=== PATIENT | female | born 1960 | race Caucasian/White ===

== ENCOUNTER 2020-01-18 04:32 | Inpatient (IN) | payer OTHER ==
[2020-01-16 17:28] VITALS: BMI 33.6
--- NOTE | 2020-01-18 08:02 | HP ---
History & Physical Update - History History: No Change - Physical Physical: No Change - Assessment Assessment: No Change - Plan Plan: No Change (H&P reviwed , no changes , for TVH, cystorectocele repair)
[2020-01-18] MEDS ORDERED: metFORMIN HCL 500 MG TABLET (FP) PO SCH (10:00)
[2020-01-18] MEDS ORDERED: PNEUMOC 13-VAL CONJ-DIP CRM/PF 0.5 ML DISP.SYRIN IM ONE (12:44)
[2020-01-18] MEDS ORDERED: VASOPRESSIN 20 UNITS/ML VIAL IV ONE (13:05)
[2020-01-18] MEDS ORDERED: metroNIDAZOLE 0.75% VAGINAL GEL 70 GM TUBE ONE (13:05)
[2020-01-18] MEDS ORDERED: LIDOCAINE HCL/PF 2% SDV 5ML VIAL ONE (13:54)
[2020-01-18] MEDS ORDERED: ceFAZolin SODIUM 1 GM VIAL ONE (13:54)
[2020-01-18] MEDS ORDERED: ROCURONIUM BROMIDE 50 MG/5 ML SYRINGE ONE (13:54)
[2020-01-18] MEDS ORDERED: fentaNYL CITRATE 250 MCG/5 ML VIAL ONE (13:55)
[2020-01-18] MEDS ORDERED: PROPOFOL 20 ML ONE ×2 (13:55→16:54)
[2020-01-18] MEDS ORDERED: MIDAZOLAM HCL 2 MG/2 ML SINGLE DOSE VIAL ONE (13:55)
[2020-01-18] MEDS ORDERED: DESFLURANE GAS 240 ML BOTTLE IH ONE (13:56)
[2020-01-18] MEDS ORDERED: ceFAZolin SODIUM 1 GM VIAL IVPB ONE (14:40)
[2020-01-18] MEDS ORDERED: GENTAMICIN SO4 80 MG/2 ML VIAL ONE (17:10)
[2020-01-18] MEDS ORDERED: GENTAMICIN SO4 80 MG/2 ML VIAL IVPB ONE (17:10)
[2020-01-18] MEDS ORDERED: NEOSTIGMINE METHYLSULFATE 0.5 MG/ML - 10 ML MDV ONE (17:18)
[2020-01-18] MEDS ORDERED: metroNIDAZOLE 0.75% VAGINAL GEL 70 GM TUBE VG ONE (17:25)
[2020-01-18] MEDS ORDERED: HYDROmorphone *PCA* 10MG/50ML DISP.SYRIN ONE (17:32)
[2020-01-18] MEDS ORDERED: ONDANSETRON 4 MG/2 ML VIAL IVPUSH PRN ×3 (17:39→18:12)
[2020-01-18] MEDS: HYDROmorphone *PCA* 10MG/50ML DISP.SYRIN PCA SCH (17:45)
--- NOTE | 2020-01-18 17:57 | OP ---
Operative Note - Note: Operative Date: 01/18/20 Pre-Operative Diagnosis: complete uterovagnial prolapse, cystocele Operation: anterior and posteior colporrhapy with perineoplasty, vaginal hystercectomy Surgeon: Paul Moss Material Flow Analyst: Mag Summers Anesthesiologist/DRY PLASTERER HELPER: Hai Russell Anesthesia: General Estimated Blood Loss (mls): 200 Drains, Volume Out (mls): 50 (rooney) Fluid Volume Replaced (mls): 1,700 Operative Report Dictated: Yes
[2020-01-18] MEDS ORDERED: SODIUM CHLORIDE 1,000 ML IV SCH (18:00)
[2020-01-18] MEDS ORDERED: IBUPROFEN 600 MG TABLET (FP) PO PRN (18:12)
[2020-01-18] MEDS ORDERED: IBUPROFEN 800 MG/8 ML IJ IVPB PRN (18:12)
--- NOTE | 2020-01-18 19:31 | OP ---
Operative Note - Note: Operative Date: 01/18/20 Pre-Operative Diagnosis: total uterovaginal prolapse , procedentia Operation: TVH, cystorectocele, pernioplasty Findings: both tubes and ovary normal Surgeon: Paul Moss Travograph Operator: Mag Summers Anesthesia: General Specimens Removed: uterus, ant. post vaginal mucosa, post. perinial skin Estimated Blood Loss (mls): 200 Drains & Tubes with Location: rooney, vaginal packing Drains, Volume Out (mls): 50 Blood Volume Replaced (mls): 0 Operative Report Dictated: Yes
--- NOTE | 2020-01-18 20:08 | OP ---
DATE OF OPERATION: 01/18/2020 PREOPERATIVE DIAGNOSIS: Complete uterovaginal prolapse, cystocele, rectocele. POSTOPERATIVE DIAGNOSIS: Complete uterovaginal prolapse, cystocele, rectocele. PROCEDURE: Vaginal hysterectomy, cystocele/rectocele repair, and perineoplasty. SURGEON: Paul Moss MD. METAL MACHINE SETTER: AUDREY Harrington. ESTIMATED BLOOD LOSS: 200 mL. URINE OUTPUT: 50 mL. DESCRIPTION OF PROCEDURE: Patient was taken to operating room, where under adequate general anesthesia in dorsal lithotomy position an examination under anesthesia revealed total procidentia, uterus and bladder was out of vagina and hanging, and there was a large rectocele and cystocele, and uterus normal size. No adnexal masses were palpable. Then with the weighted speculum in the vagina, anterior lip of the cervix was grasped with 2 single-loop tenaculum and then anterior and posterior vaginal mucosa was infiltrated with diluted solution of the vasopressin. Then circumferential incision was made around the cervix. Posterior vaginal mucosa was grasped with a pickup and then with Metzenbaum scissors. Posterior vaginal mucosa was dissected from the cervix with sharp and blunt dissection, and then posterior cul-de-sac was reached and distended, peritoneum was grasped with Ximena clamp and entered with Metzenbaum scissors, then peritoneum was sutured to the posterior vaginal cuff and was held. Then, anterior vaginal mucosa was infiltrated with vasopressin and dissected with Metzenbaum scissors, sharp and blunt dissection, and bladder was lifted from the cervix. Then uterosacral ligament was identified. It was clamped with Sabra clamps bilaterally but and the clamp replaced with 0 Vicryl suture bilaterally. Then paracervical area clamped with Sabra clamps and cut, and the clamps replaced with 0 Vicryl suture bilaterally. Then uterine artery was identified bilaterally. Bladder was lifted, and then uterine artery was clamped with Sabra clamp, cut, and the clamp replaced with 0 Vicryl suture bilaterally. At this time, anterior peritoneum was grasped with pickup and entered with Metzenbaum scissors, and then bladder was lifted. After pedicles were reached, and then clamped with Sabra clamp and cut, and the both pedicle first with 0 Vicryl tie and then with 0 Vicryl suture. Both ovaries were normal, and then pelvic cavity was irrigated, all the pedicles were dry. Then peritoneum was closed with pursestring suture of the 0 Vicryl, and this time I was notified there was 1 missing sponge. X-ray was taken, and sponge was seen in the cul-de-sac. Peritoneum was opened through the vagina, and the sponge was removed, and then the peritoneum was re-sutured. Then vaginal cuff was closed with interrupted suture of 0 Vicryl. Then the cystocele repair started by infiltrating the anterior vaginal mucosa and then anterior vaginal mucosa was cut in the midline and then undermined with Metzenbaum scissors, and the bladder was from the mucosa. Then cystocele was repaired with pursestring of the 2-0 Vicryl, and then several 3-0 Vicryl mattress sutures were placed over the bladder for reinforcement, then excised, and mucosa was removed, then vaginal mucosa was brought together with interrupted suture of 0 Vicryl. At this time the Arango was inserted, clear urine was noted. Then posterior repair started by infiltrating posterior vaginal mucosa with vasopressin, then vaginal mucosa was cut in the midline vertically, and then the lip of the rectocele and rectum was from the vaginal mucosa, and then rectocele was repaired with several sutures of the mattress suture of 2-0 Vicryl, and then it greatly reduced. Then excess vaginal mucosa, posterior vaginal mucosa was cut, and then posterior vaginal mucosa repaired with continuous suture of 2-0 Vicryl, and then perineoplasty started by cutting the excess perineal skin. Then vaginal mucosa was removed around the muscle area, and then with interrupted sutures of 2-0 Vicryl, muscles were brought together, and then rest of the procedure in episiotomy-like fashion, and the posterior perineum was repaired like episiotomy-like fashion. Then vagina was packed with iodoform and cream, and then patient tolerated procedure well, left the OR in good condition. Omar [id number]
[2020-01-18] MEDS: ACETAMINOPHEN 1000 MG/100 ML VIAL (NON FORMULARY) IVPB SCH (21:15)
[2020-01-18] MEDS: GABAPENTIN 300 MG CAPSULE PO SCH (21:16)
[2020-01-18] MEDS: ATORVASTATIN CA 10 MG TABLET (FP) PO SCH (21:16)
[2020-01-18] MEDS: LACTATED RINGERS SOLUTION 1,000 ML IV SCH (21:17)
[2020-01-18] MEDS: ELECTROLYTE-148 SOLN 1,000 ML IV SCH (21:17)
[2020-01-18] MEDS: INSULIN SLIDING SCALE (NOVOLOG) 1 VIAL SQ SCH (21:30)
[2020-01-18] MEDS ORDERED: CEFAZOLIN 1 GM/D5W 1 GM/50 ML BAG IVPB SCH (23:00)
[2020-01-18] MEDS: CEFAZOLIN 2 GM/D5W 2 GM/50 ML ML IVPB SCH (23:50)
[2020-01-19] MEDS: ACETAMINOPHEN 1000 MG/100 ML VIAL (NON FORMULARY) IVPB SCH ×2 (04:20→10:15)
--- NOTE | 2020-01-19 05:52 | SURG ---
Surgery Inspector Packer Note Inspector Packer: Mag Summers PA-C Date of Service: 01/19/20 Diagnosis: total uterovaginal prolapse , procedentia Procedure: TVH, cystorectocele, pernioplasty I was present for the entirety of the operative procedure. For further detail, please refer to operative report. Visit type - Case Type Case Type: Scheduled - Emergency Emergency Visit: No - New patient This patient is new to me today: Yes Date on this admission: 01/18/20
[2020-01-19] MEDS: glipiZIDE 5 MG TABLET (FP) PO SCH (06:01)
[2020-01-19] MEDS: CEFAZOLIN 2 GM/D5W 2 GM/50 ML ML IVPB SCH ×2 (06:01→15:31)
[2020-01-19] MEDS: INSULIN SLIDING SCALE (NOVOLOG) 1 VIAL SQ SCH ×4 (06:08→21:38)
[2020-01-19 08:15] LABS: HEMOGLOBIN 10.2 GM/dL (10.7-15.3); MCH 29.3 pg (25.7-33.7); MEAN CELL VOLUME 88.8 fl (80-96); MEAN PLT VOLUME 9.3 fl (7.5-11.1); PLATELET COUNT 235 K/MM3 (134-434); RBC 3.49 M/mm3 (3.60-5.2); RDW 13.2 % (11.6-15.6); WHITE BLOOD COUNT 11.3 K/mm3 (4.0-10.0)
[2020-01-19 08:16] LABS: BASO % 0.3 % (0-2.0); HEMATOCRIT 31.1 % (32.4-45.2); HEMOGLOBIN 10.2 GM/dL (10.7-15.3); LYMPH % 13.4 % (8-40); MCH 29.3 pg (25.7-33.7); MCHC 32.8 g/dl (32.0-36.0); MEAN CELL VOLUME 89.4 fl (80-96); MEAN PLT VOLUME 9.6 fl (7.5-11.1); NEUT % 81.3 % (42.8-82.8); PLATELET COUNT 225 K/MM3 (134-434); RBC 3.48 M/mm3 (3.60-5.2); RDW 13.1 % (11.6-15.6); WHITE BLOOD COUNT 11.9 K/mm3 (4.0-10.0)
[2020-01-19 08:36] LABS: BLOOD UREA NITROGEN 14.9 mg/dL (7-18); CALCIUM 8.3 mg/dL (8.5-10.1); CREATININE 0.6 mg/dL (0.55-1.3); POTASSIUM 4.4 mmol/L (3.5-5.1)
[2020-01-19] MEDS: GABAPENTIN 300 MG CAPSULE PO SCH ×2 (10:14→21:37)
[2020-01-19] MEDS: metFORMIN HCL 500 MG TABLET (FP) PO SCH ×2 (10:14→17:34)
[2020-01-19] MEDS: ENOXAPARIN NA (PORCINE) 40 MG/0.4 ML DISP.SYRIN SQ SCH (10:21)
--- NOTE | 2020-01-19 14:22 | PN ---
Progress Note (short form) - Note Progress Note: Anesthesia post Op/pain Pt seen and examined S:Alert and awake mild discomfort at the incision site. COMPOSING ROOM MACHINIST stopped. O: Vital Signs Temperature 98.4 F 01/19/20 05:33 Pulse Rate 66 01/19/20 05:33 Respiratory Rate 18 01/19/20 05:33 Blood Pressure 104/67 01/19/20 05:33 O2 Sat by Pulse Oximetry (%) 98 01/19/20 05:33 CBC, BMP 01/19/20 06:37 01/19/20 06:37 A/P: s/p vaginal hysterectomy Doing well post op. Po pain meds as needed Continue current care Christopher Corrigan MD
[2020-01-19] MEDS: oxyCODONE HCL 5 MG TABLET PO PRN ×2 (15:29→20:22)
[2020-01-19] MEDS ORDERED: PNEUMOCOCCAL 23 VACCINE 0.5 ML VIAL IM ONE (18:00)
[2020-01-19] MEDS: HYDROmorphone *PCA* 10MG/50ML DISP.SYRIN PCA SCH (19:19)
[2020-01-19] MEDS: LACTATED RINGERS SOLUTION 1,000 ML IV SCH (19:19)
[2020-01-19] MEDS: ELECTROLYTE-148 SOLN 1,000 ML IV SCH ×2 (19:44→22:49)
[2020-01-19] MEDS: ATORVASTATIN CA 10 MG TABLET (FP) PO SCH (21:37)
[2020-01-19] MEDS ORDERED: IBUPROFEN 600 MG TABLET (FP) PO PRN (22:03)
[2020-01-19] MEDS: ACETAMINOPHEN 1000 MG/100 ML VIAL (NON FORMULARY) IVPB PRN (22:19)
[2020-01-20] MEDS: oxyCODONE HCL 5 MG TABLET PO PRN (05:13)
[2020-01-20] MEDS: glipiZIDE 5 MG TABLET (FP) PO SCH (06:15)
[2020-01-20] MEDS: metFORMIN HCL 500 MG TABLET (FP) PO SCH (06:15)
[2020-01-20] MEDS: INSULIN SLIDING SCALE (NOVOLOG) 1 VIAL SQ SCH ×2 (06:19→11:58)
[2020-01-20] MEDS: ACETAMINOPHEN 1000 MG/100 ML VIAL (NON FORMULARY) IVPB PRN (08:00)
--- NOTE | 2020-01-20 08:44 | PN ---
Progress Note (short form) - Note Progress Note: 01/19/20 2pm s/p TVH ,vaginal packing and rooney was removed in am , has been able to urinate freely, has mild suprapubic discomfort, no active vaginal bleeding or discharge afebrile , VSS abdomen soft , no distension, no cva, BS present vagina no bleeding , no discharge no calf tenderness or swelling plan ambulate iv antibiotics post op monitor urination and VS patient was made aware of retention sponge and removal . plan for d/c home if afebrile n view of DM, and procedentia with inflamed vaginal tissue preop will cont antibiotic po on d/c home
[2020-01-20] MEDS ORDERED: BISACODYL 10 MG SUPP.RECT PR PRN (08:56)
[2020-01-20] MEDS ORDERED: DOCUSATE SODIUM 100 MG CAPSULE (FP) PO PRN (08:56)
[2020-01-20] MEDS ORDERED: BISACODYL 10 MG SUPP.RECT PR SCH (08:57)
--- NOTE | 2020-01-20 09:03 | PN ---
Progress Note (SOAP) - Subjective History of Present Illness: Patient reports pain s/p oxycodone, on tylenol IV ambulating, voiding no flatus no bleeding no chest pain, shortness of breath - Current Medications Current Medications: Active Medications Acetaminophen (Ofirmev Injection -) 1,000 mg IVPB Q6H PRN PRN Reason: PAIN LEVEL 6-10 Stop: 01/20/20 22:09 Last Admin: 01/20/20 08:00 Dose: 1,000 mg Documented by: Atorvastatin Calcium (Lipitor -) 10 mg PO HS [facility] Last Admin: 01/19/20 21:37 Dose: 10 mg Documented by: Bisacodyl (Dulcolax Suppository -) 10 mg UT DAILY PRN PRN Reason: CONSTIPATION Bisacodyl (Dulcolax Suppository -) 10 mg UT ONCE [facility] Docusate Sodium (Colace -) 100 mg PO BID PRN PRN Reason: CONSTIPATION Enoxaparin Sodium (Lovenox -) 40 mg SQ DAILY [facility] Last Admin: 01/19/20 10:21 Dose: 40 mg Documented by: Gabapentin (Neurontin -) 300 mg PO BID [facility] Last Admin: 01/19/20 21:37 Dose: 300 mg Documented by: Glipizide (Glucotrol -) 5 mg PO ACBK [facility] Last Admin: 01/20/20 06:15 Dose: 5 mg Documented by: Lactated Ringer's (Lactated Ringers Solution) 1,000 mls @ 125 mls/hr IV ASDIR [facility] Last Admin: 01/19/20 19:19 Dose: Not Given Documented by: Sodium Chloride (Normal Saline -) 1,000 mls @ 100 mls/hr IV ASDIR [facility] Last Admin: 01/18/20 18:00 Dose: 150 mls Documented by: Parenteral Electrolytes (Plasma-Lyte 148 -) 1,000 mls @ 125 mls/hr IV ASDIR [facility] Last Admin: 01/19/20 22:49 Dose: 125 mls/hr Documented by: Ibuprofen (Caldolor Injection -) 800 mg IVPB Q6H PRN PRN Reason: Fever - If PO not effective. Ibuprofen (Motrin -) 600 mg PO Q6H PRN PRN Reason: PAIN LEVEL 1-5 OR FEVER Insulin Aspart (Novolog Vial Sliding Scale -) 1 vial SQ [facility]; Protocol Last Admin: 01/20/20 06:19 Dose: Not Given Documented by: Metformin HCl (Glucophage -) 500 mg PO BIDAC [facility] Last Admin: 01/20/20 06:15 Dose: 500 mg Documented by: Ondansetron HCl (Zofran Injection) 4 mg IVPUSH Q6H PRN PRN Reason: NAUSEA Oxycodone HCl (Roxicodone -) 5 mg PO Q4H PRN PRN Reason: PAIN LEVEL 6-10 Last Admin: 01/20/20 05:13 Dose: 5 mg Documented by: Senna/Docusate Sodium (Pericolace -) 1 tablet PO BID [facility] - Objective Vital Signs: Vital Signs Temperature 99 F 01/20/20 05:20 Pulse Rate 91 H 01/20/20 05:20 Respiratory Rate 18 01/20/20 05:20 Blood Pressure 132/77 01/20/20 05:20 O2 Sat by Pulse Oximetry (%) 95 01/20/20 05:20 Constitutional: Yes: Well Nourished, No Distress, Calm Neck: Yes: Supple Cardiovascular: Yes: Regular Rate and Rhythm Respiratory: Yes: WNL Gastrointestinal: Yes: Normal Bowel Sounds, Soft Genitourinary: No: Vaginal Bleeding Musculoskeletal: Yes: WNL Extremities: Yes: WNL Edema: No Neurological: Yes: Alert, Oriented ...Motor Strength: Yes: WNL Psychiatric: Yes: Alert, Oriented Labs Lab Results: CBCD WBC 11.3 K/mm3 (4.0-10.0) H 01/19/20 06:37 WBC 11.9 K/mm3 (4.0-10.0) H 01/19/20 06:37 RBC 3.48 M/mm3 (3.60-5.2) L 01/19/20 06:37 RBC 3.49 M/mm3 (3.60-5.2) L 01/19/20 06:37 Hgb 10.2 GM/dL (10.7-15.3) L 01/19/20 06:37 Hgb 10.2 GM/dL (10.7-15.3) L 01/19/20 06:37 Hct 31.0 % (32.4-45.2) L 01/19/20 06:37 Hct 31.1 % (32.4-45.2) L 01/19/20 06:37 MCV 88.8 fl (80-96) 01/19/20 06:37 MCV 89.4 fl (80-96) 01/19/20 06:37 MCHC 32.8 g/dl (32.0-36.0) 01/19/20 06:37 MCHC 33.0 g/dl (32.0-36.0) 01/19/20 06:37 RDW 13.1 % (11.6-15.6) 01/19/20 06:37 RDW 13.2 % (11.6-15.6) 01/19/20 06:37 Plt Count 225 K/MM3 (134-434) 01/19/20 06:37 Plt Count 235 K/MM3 (134-434) 01/19/20 06:37 MPV 9.3 fl (7.5-11.1) 01/19/20 06:37 MPV 9.6 fl (7.5-11.1) 01/19/20 06:37 CMP Sodium 137 mmol/L (136-145) 01/19/20 06:37 Potassium 4.4 mmol/L (3.5-5.1) 01/19/20 06:37 Chloride 103 mmol/L (98-107) 01/19/20 06:37 Carbon Dioxide 27 mmol/L (21-32) 01/19/20 06:37 Anion Gap 7 MMOL/L (8-16) L 01/19/20 06:37 BUN 14.9 mg/dL (7-18) 01/19/20 06:37 Creatinine 0.6 mg/dL (0.55-1.3) 01/19/20 06:37 Random Glucose 155 mg/dL (74-106) H 01/19/20 06:37 Calcium 8.3 mg/dL (8.5-10.1) L 01/19/20 06:37 Assessment/Plan 59 yo POD # 2 s/p TVH, cystorectocele, perineoplasty 1. Discussed pain control Encouraged motrin and tyelnol PRN Discussed use of opioids 2. No flatus, tolerating PO Low suspicion of ileus Encouraged ambulation and will give dulcolax 3. Continue home meds PRN 4. will proceed with expectant management, anticpate discharge if adequate pain control, ambulating, voiding and passing flatus
[2020-01-20] MEDS: ENOXAPARIN NA (PORCINE) 40 MG/0.4 ML DISP.SYRIN SQ SCH (09:23)
[2020-01-20] MEDS: GABAPENTIN 300 MG CAPSULE PO SCH (09:23)
[2020-01-20] MEDS ORDERED: SENNOSIDES/DOCUSATE COMBO (SENNA PLUS) TABLET (UD) PO SCH (10:00)
[2020-01-20 10:09] VITALS: BP 131/81; PULSE 95; TEMP 99
--- NOTE | 2020-01-23 11:14 | DS ---
Physical Exam-TALENT ENGINEER Vital Signs: Vital Signs Temperature 99.0 F 01/20/20 10:09 Pulse Rate 95 H 01/20/20 10:09 Respiratory Rate 18 01/20/20 10:09 Blood Pressure 131/81 01/20/20 10:09 O2 Sat by Pulse Oximetry (%) 95 01/20/20 10:09 Constitutional: Yes: Well Nourished, No Distress, Calm Eyes: Yes: WNL, Conjunctiva Clear, EOM Intact HENT: Yes: WNL, Atraumatic, Normocephalic Neck: Yes: WNL, Supple, Trachea Midline Cardiovascular: Yes: WNL, Regular Rate and Rhythm Respiratory: Yes: WNL, Regular, CTA Bilaterally Gastrointestinal: Yes: WNL ...Rectal Exam: Yes: WNL Renal/: Yes: WNL Vaginal Exam: Yes: Normal Breast(s): Yes: WNL Musculoskeletal: Yes: WNL Extremities: Yes: WNL Integumentary: Yes: WNL Neurological: Yes: WNL, Alert, Oriented ...Motor Strength: WNL Psychiatric: Yes: WNL, Alert, Oriented Labs: CBC, BMP 01/19/20 06:37 01/19/20 06:37 Discharge Summary Problems reviewed: Yes Reason For Visit: COMPLETE UTEROVAGINAL PROLAPSE Procedures: Principal: vaginal hysterectomy, cystorectocele repair, pernioplasty Hospital Course: no complication Health Concerns: obesity, DM Plan of Treatment: follo wup office 2 weeks Condition: Good - Instructions Diet, Activity, Other Instructions: regular diet ,no intercourse, if fever, heavy vaginal bleeding, pain, difficulty with urination call , follow up office 2 weeks Referrals: Paul Moss MD [Staff Physician] - Disposition: HOME - Home Medications Comprehensive Discharge Medication List: Ambulatory Orders Atorvastatin Ca [Lipitor] 10 mg PO HS 01/16/20 Gabapentin 300 mg PO BID 01/16/20 Glipizide 5 mg PO DAILY 01/16/20 metFORMIN HCL [Metformin HCl] 500 mg PO BID 01/16/20 Amox-Tr/K Cl [Augmentin - 875Mg Tablet] 1 tab PO BID #14 tablet 01/20/20 Ibuprofen [Motrin -] 600 mg PO QID #28 tablet 01/20/20 Oxycodone HCl/Acetaminophen [Percocet 5-325 mg Tablet] 1 tab PO Q6H #10 tablet MDD 4 01/20/20 Sennosides/Docusate Sodium [Pericolace -] 1 each PO HS #20 tablet MDD 2 01/20/20
--- NOTE | 2020-01-23 16:15 | PATH ---
Surgical Pathology Report Patient Name: CATARINA COLLINS [facility]. Rec. #: [id number] /Age/Gender: 1960 (Age: 59) / F Account: [id number] Location: [address] [place] [address]/[facility] Taken: 01/18/2020 Received: 01/19/2020 Reported: 01/23/2020 Physicians: Paul Moss M.D. Specimen(s) Received A: UTERUS AND CERVIX B: ANTERIOR VAGINAL MUCOSA C: PERINEAL SKIN Clinical History Complete uterovaginal prolapse Final Diagnosis A. UTERUS AND CERVIX, TRANSVAGINAL HYSTERECTOMY: 96 G UTERUS. WEAKLY PROLIFERATIVE ENDOMETRIUM. MYOMETRIUM WITH ADENOMYOSIS. CERVIX WITH FOCAL ACUTE AND CHRONIC INFLAMMATION, MICROGLANDULAR HYPERPLASIA , AND PARAKERATOSIS. VAGINAL MUCOSA WITH SUBEPITHELIAL HEMORRHAGE AND PARAKERATOSIS. B. ANTERIOR VAGINAL MUCOSA, REPAIR: VAGINAL SQUAMOUS MUCOSA WITH PARAKERATOSIS. C. PERINEAL SKIN, PERINEOPLASTY: SQUAMOUS MUCOSA WITH SUPERFICIAL DERMAL CHRONIC INFLAMMATORY INFILTRATE AND FOCAL HEMORRHAGE. Electronically Signed Deb Hou M.D. Gross Description A. Received in formalin labeled "uterus and cervix," is a 96 g uterus with an attached cervix and no attached adnexa. The specimen measures 10 cm from superior to inferior, 5.2 cm from left to right and 3.8 cm from anterior to posterior. There is vaginal mucosa attached to the cervix. The vaginal mucosa displays a 0.6 x 0.6 cm brown, bullous lesion filled with blood. The serosa is magana-bay and smooth. The attached cervix measures 4 cm in length and averages 2 cm in diameter. The ectocervix is unremarkable. The endocervix is unremarkable. The endometrial cavity measures 3.5 cm in length and 1.6 cm from cornu to cornu. The endometrium is magana-red and averages 0.1 cm in thickness. The myometrium is magana meehan and averages 1.9 cm in thickness. No intramural nodules are identified. Weight Clerk sections are submitted in 7 cassettes as follows: 1-anterior cervix; 2-posterior cervix; 3-vaginal mucosal lesion; 1-0-adshepfl endomyometrium; 6-7- posterior endomyometrium. B. Received in formalin labeled "anterior vaginal mucosa," are 2 magana, unoriented portions of unremarkable mucosal tissue measuring 4.2 x 1.2 x 0.3 cm and 6.0 x 1.3 x 0.5 cm. Weight Clerk sections are submitted in one cassette. C. Received in formalin labeled "perineal skin," is a 3.0 x 1.2 cm magana brown, unoriented and unremarkable skin shave. Weight Clerk sections are submitted in one cassette. 01/22/2020 [facility]01/22/2020
== END 2020-01-20 14:00 | disposition home or self-care (01) | DRG 743 ==
LOC: J2C 04:32 → J6S 19:55
PROVIDERS: ADMIT Obstetrics & Gynecology; ATTEND Obstetrics & Gynecology
PROC: 0KQM3ZZ Repair Perineum Muscle, Percutaneous Approach (ICD-10-PCS; 2020-01-18)
PROC: 0UT97ZZ Resection of Uterus, Via Natural or Artificial Opening (ICD-10-PCS; principal; 2020-01-18 14:00)
PROC: 0JQC3ZZ Repair Pelvic Region Subcutaneous Tissue and Fascia, Percutaneous Approach (ICD-10-PCS; 2020-01-18 14:00)
DX: N81.3 Complete uterovaginal prolapse (principal); Z68.33 Body mass index [BMI] 33.0-33.9, adult; E66.9 Obesity, unspecified; E11.9 Type 2 diabetes mellitus without complications; N81.10 Cystocele, unspecified; N81.6 Rectocele
CPT/HCPCS: 36415; 74018-TC-FY; 80048; 82962; 85025; 85027; 86850; 86900; 86901; 88302-TC; 88304-TC; 88305-TC; 90732; 94760; G0009; J0131